=== PATIENT | male | born 1990 | race Caucasian/White ===

== ENCOUNTER 2023-10-25 15:17 | Inpatient (IN) | payer OTHER, SELFPAY ==
[2023-10-25] VITALS (15 sets, daily range): BP systolic 111–160; BP diastolic 62–101; PULSE 90–116; RESP 17–30; TEMP 36.1–36.4; O2SAT 98–100; BMI 27.9; BMI 30.5
--- NOTE | 2023-10-25 15:33 | NURSING ---
NO OLD EKGS
--- NOTE | 2023-10-25 15:40 | EKG12_ITS ---
Test Reason : Blood Pressure : / mmHG Vent. Rate : 102 BPM Atrial Rate : 102 BPM P-R Int : 140 ms QRS Dur : 104 ms QT Int : 400 ms P-R-T Axes : 058 045 011 degrees QTc Int : 521 ms Sinus tachycardia Prolonged QT Abnormal ECG Confirmed by Petey Singleton ([id number]), assistant production editor FÁTIMA FITZGERALD ([id number]) on 10/27/2023 8:18:48 AM Referred By: Confirmed By:Petey Singleton
--- NOTE | 2023-10-25 15:41 | EDS_ITS ---
HPI History of Present Illness Chief Complaint: Chest Pain Informant: patient and parent Narrative Narrative: 33-year-old male presenting to the emergency room with chief complaint of chest pain. Patient states for about 1 week he is felt weak. He notes increased urination and thirst. He states he feels short of breath. Mother states that she noticed that he was breathing very heavy on Thursday evening when she returned home. Patient denies any diarrhea or constipation. 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 He denies any cough. Denies weight gain weight loss. He states his biggest complaint is that he feels globally weak. Chest pain he describes as burning and just to the right of midline. It is made worse with eating and drinking. Patient denies any significant familial medical history including diabetes. He states he currently takes no medications or herbal supplements. PFSH PFSH Medical History no medical history no medical history Home Medications NK 10/25/23 [History Last Taken Unknown] Allergy/AdvReac Type Severity Reaction Status Date / Time No Known Allergies Allergy Verified 10/25/23 15:18 Surgical History no surgical history Social History (Updated 10/25/23 @ 15:[address] Song Mitchell, DO) current occupational status: employed current occupation: Fabricator x 9 years current gender identity: male Smoking Status: Never smoker ROS ROS ED Constitutional Constitutional ED: Reports other Details: Generalized fatigue ; Denies chills, fever(s) or weight loss Eyes Eyes: Denies change in vision or diplopia ENT ENT ED: Denies ear pain, rhinorrhea or sore throat Cardiovascular Cardiovascular: Reports chest pain; Denies orthopnea, palpitations or racing heartbeat Respiratory/Chest Respiratory/Chest: Reports dyspnea; Denies cough or orthopnea Gastrointestinal Gastrointestinal: Denies abdominal pain, diarrhea, nausea or vomiting Genitourinary Genitourinary ED: Reports urinary frequency; Denies dysuria or hematuria Musculoskeletal Musculoskeletal: Denies arthralgias or myalgias Integumentary Denies abscess or rash Neurologic Neurologic: Denies headache(s) or weakness Psychiatric Psychiatric: Denies anxiety, depression, suicidal ideation or suicidal thoughts Endocrine Endocrinology: Reports polydipsia; Denies polyphagia or polyuria Allergic/Immunologic Allergic/Immunologic ED: Denies mouth swelling, tongue swelling or urticaria EXAM Physical Exam Narrative Exam Narrative: Patient appears globally fatigued Const Vital Signs: 10/25/23 15:18 03/10/24 15:54 10/25/23 16:03 Temperature 97.2 F L 97 F L Temperature Source Temporal Axillary Pulse Rate 103 H 102 H Respiratory Rate 24 H 27 H Respiratory Effort Short of Breath Labored Accessory Muscle Use Nasal Flaring Pursed Lip Blood Pressure 150/92 H 145/85 H Blood Pressure Mean 111 105 Pulse Ox 100 100 Oxygen Delivery Method Room Air Room Air Positive well nourished and well developed General Appearance ED: well developed HEENT Reports normocephalic, head/scalp atraumatic and dry mucous membranes Mouth ED: Yes dry mucous membranes Mouth: dry mucous membranes Eyes PERRL and EOMs intact bilaterally Neck no lymphadenopathy, supple and no JVD Resp clear to auscultation bilaterally Resp Narrative: Patient appears dyspneic/tachypneic Cardio regular rate, regular rhythm and no murmurs Rate: tachycardic GI normal to inspection, nondistended, normoactive bowel sounds and non-tender Palpation: soft Back/Spine no CVA tenderness and normal ROM Extremity General Extremety ED: Negative for edema or tenderness General Extremity: Negative for edema Neuro oriented x3 and CN's II-XII intact bilaterally Sensorium / Orientation: alert Motor Exam: strength 5/5 throughout Psych mental status grossly normal Mood & Affect: Negative for depressed or tearful Skin no wounds Skin Narrative: Patient appears to have slight mottling of the lower extremities MDM MDM MDM Narrative Medical decision making narrative: Accu-Chek is 450. EKG demonstrates a sinus tachycardia at a ventricular rate of 102. Patient's pH is 7.07 with a CO2 of 7.5 pO2 121.8 and a bicarb of 2.2. IV was established and patient received IV fluids. He also received morphine and Zofran for pain. Plan at that interpretation of the chest x-ray is no acute process. White count is elevated 17.1 with a hemoglobin 16.2 and a platelet count of 405. Normal coags. Sodium at 124 potassium 3.8 CO2 at 7 anion gap of 29 BUN of 17 creatinine 1.55. Blood sugar 609. lactic acid normal 1.5 moderate acetone in the blood. Liver panel within normal limits. Urinalysis is concentrated with no overt infection. Positive ketones. Patient received IV fluids and was started on an insulin drip. Patient was reassessed and is still mentating. I reviewed the ED workup with the patient and his family. Clinically believe the patient is in diabetic ketoacidosis plan will be admission into the ICU. Urine collection is still pending. History & Record Review Discussion w/independent historian: Patient and Family Lab Data Attestation: I reviewed the patient's lab results. Labs: Laboratory Results - last 24 hr 10/25/23 10/25/23 10/25/23 15:36 15:45 15:46 WBC 17.1 H RBC 5.31 Hgb 16.2 Hct 45.6 MCV 85.9 MCH 30.5 MCHC 35.5 RDW Std Deviation 38.9 RDW Coeff of Christal 12.6 Plt Count 405 MPV 11.0 Immature Gran % (Auto) 1.200 H Neut % (Auto) 82.0 H Lymph % (Auto) 7.1 L [place] % (Auto) 9.0 Eos % (Auto) 0.1 Baso % (Auto) 0.6 Absolute Neuts (auto) 14.0 H Absolute Lymphs (auto) 1.22 Nucleated RBC % 0 Differential Comment SCANNED Diff Path Review May foll PT 13.1 INR 1.0 APTT 29.0 Sodium 124 L Potassium 3.8 Chloride 88 L Carbon Dioxide 7.0 L* Anion Gap 29 H BUN 17 Creatinine 1.55 H Estim Creat Clear Calc 65.13 Est GFR (MDRD) Af Amer 67 Est GFR (MDRD) Non-Af 56 L BUN/Creatinine Ratio 11.0 Glucose 609 H* Lactic Acid 1.5 Calcium 8.7 Phosphorus 4.4 Magnesium 2.2 Total Bilirubin 0.90 Direct Bilirubin 0.15 AST 18 ALT 36 Alkaline Phosphatase 156 H Troponin I High Sens 4 Total Protein 8.8 H Albumin 4.2 Globulin 4.6 H Lipase 30 Urine Color Urine Clarity Urine pH Ur Specific [place] Urine Protein Urine Glucose (UA) Urine Ketones Urine Occult Blood Urine Nitrite Urine Bilirubin Urine Urobilinogen Ur Leukocyte Esterase Urine RBC Urine WBC Ur Squamous Epith Cells Amorphous Sediment Urine Bacteria Urine Mucus Acetone Level MODERATE H POC Glucose 450 H 10/25/23 16:11 WBC RBC Hgb Hct MCV MCH MCHC RDW Std Deviation RDW Coeff of Christal Plt Count MPV Immature Gran % (Auto) Neut % (Auto) Lymph % (Auto) [place] % (Auto) Eos % (Auto) Baso % (Auto) Absolute Neuts (auto) Absolute Lymphs (auto) Nucleated RBC % Differential Comment Diff Path Review PT INR APTT Sodium Potassium Chloride Carbon Dioxide Anion Gap BUN Creatinine Estim Creat Clear Calc Est GFR (MDRD) Af Amer Est GFR (MDRD) Non-Af BUN/Creatinine Ratio Glucose Lactic Acid Calcium Phosphorus Magnesium Total Bilirubin Direct Bilirubin AST ALT Alkaline Phosphatase Troponin I High Sens Total Protein Albumin Globulin Lipase Urine Color Yellow Urine Clarity Sl. Cloudy Urine pH 5.0 Ur Specific [place] 1.025 Urine Protein 100 H Urine Glucose (UA) 1000 H Urine Ketones 150 A* Urine Occult Blood 250 H Urine Nitrite Negative Urine Bilirubin Negative Urine Urobilinogen Normal Ur Leukocyte Esterase Negative Urine RBC 10-25 SEEN Urine WBC 0-5 SEEN Ur Squamous Epith Cells 0-5 SEEN Amorphous Sediment 1+ URATE Urine Bacteria 0 SEEN Urine Mucus 0 SEEN Acetone Level POC Glucose ABG Data ABG results: ABG 10/25/23 15:56 Specimen Type ART Sample Site R Radial pH 7.07 L* Bicarbonate Actual 2.2 L Total CO2 < 5 Base Excess -28 L O2 Saturation 97 O2 % 21.0 ABG pCO2 7.5 L* ABG pO2 122 H Jonnathan Test Positive O2 Delivery Device Not entered Vent Mode Not entered Crit Call To/Read Back Yes Blood Gas Notified Whom [facility] Blood Gas Notified Time 15:58:07 Radiography Diagnostic Testing: Clinical Impression(s) from Imaging Studies Chest X-Ray 10/25/23 16:14 IMPRESSION: Normal x-ray examination of the chest. Electronically Signed: Juan Francisco Lawson MD at 16:47 EDT , EKG Initial EKG: Attestation: I personally reviewed and interpreted this EKG as follows: Comments: Sinus tachycardia at a ventricular rate of 102 bpm. No definitive features of ACS noted. Critical Care Time Critical Care Time: Yes Critical care time (excluding procedures): 30-74 minutes (35 min), Discussing w/Patient &/or Family/Fine Arts Chair, Discussing w/Consultants, Arranging Admission or Transfer and Performing Direct Patient Care at Bedside Discharge Plan Dx/Rx/DC Orders Clinical Impression: Diabetic ketoacidosis, Chest pain Disposition Disposition: [facility]
[2023-10-25] MEDS: 0.9% Normal Saline (1000mL) 1,000 ML 1000 ML IV ×2 (15:49→15:59)
[2023-10-25 15:55] LABS: Bedside Glucose 450 mg/dL (74-106)
[2023-10-25] MEDS: Morphine 4 MG/ML Syringe IV (15:57)
[2023-10-25] MEDS: Ondansetron 4 MG/2 ML Vial IV (15:57)
[2023-10-25 16:00] LABS: Allen Test Positive; Base Excess -28 mmol/L (-2 to +2); Bicarbonate 2.2 mmol/L (22-26); Blood Gas Specimen Type ART; Mode Not entered; O2 Delivery Device Not entered; PO2 122 mmHG (75-100); SITE R Radial; SO2 97 % (95-99); Time Given 15:58:07; Total Carbon Dioxide < 5 mmol/L; pCO2 7.5 mmHg (35-45); pH 7.07 (7.35-7.45)
[2023-10-25 16:09] LABS: Absolute Lymphocyte Count 1.22 X10^3/uL (0.83-4.51); Basophil% 0.6 % (0-1); Eosinophil# 0.01 X10^3/uL; Eosinophils% 0.1 % (0-5); Hematocrit 45.6 % (40-54); Hemoglobin 16.2 g/dL (13.0-16.5); Lymphocyte # 1.22 X10^3/ul (0.83-4.51); Lymphocyte % 7.1 % (19-41); Mean Corp Hgb Conc 35.5 g/dL (32-36); Mean Corpuscular Hgb 30.5 pg (27.0-32.0); Mean Corpuscular Volume 85.9 fL (80-94); Monocyte# 1.54 X10^3/uL; NRBC Flagged by Analyzer 0 % (0-5); Neutrophil # 14.02 X10^3/uL (2.7-7.7); POSITIVE DIFFERENTIAL YES; Platelet Count 405 K/mm3 (150-450); RBC Distribution Width CV 12.6 % (11.6-14.6); RBC Distribution Width SD 38.9 fl (35.1-43.9); Red Blood Count 5.31 M/mm3 (4.6-6.2); White Blood Count 17.1 K/mm3 (4.4-11.0)
--- NOTE | 2023-10-25 16:14 | RAD_ITS ---
STUDY: X-RAY CHEST REASON FOR EXAM: Male, 33 years old. chest pain dyspnea TECHNIQUE: Single AP portable view of the chest. COMPARISON: None. FINDINGS: The lungs are clear and expanded. There is no demonstrated pleural abnormality. Normal size heart. Normal mediastinum and ana rosa. Normal visualized pulmonary arteries. Normal visualized aortic arch and descending thoracic aorta. Normal visualized thoracic spine. Normal visualized ribs, clavicles, and shoulders. There is no demonstrated abnormality of the visualized soft tissue structures of the upper abdomen. RAD/Chest 1 View (Portable) IMPRESSION: Normal x-ray examination of the chest. Electronically Signed: Juan Francisco Lawson MD at 16:47 EDT ,
[2023-10-25 16:16] LABS: Bacteria 0 SEEN /hpf (None Seen); Mucous, Urine 0 SEEN /hpf (<or=2+)
[2023-10-25 16:17] LABS: Differential Indicated SCAN CRITERIA MET
[2023-10-25 16:20] LABS: Color, Urine Yellow (Yellow); Glucose, Dipstick 1000 mg/dl (Normal); Leukocyte Esterase-Dipstick Negative /ul (Negative); Nitrite-Dipstick Negative (Negative); Occult Blood-Urine 250 /ul (Negative); Protein-Dipstick 100 mg/dl (Negative); Specific Gravity, Urine 1.025 (1.002-1.030); Urine Bilirubin Dipstick Negative (Negative); Urine Clarity Sl. Cloudy (Clear); Urine Urobilinogen Normal (Normal)
[2023-10-25 16:23] LABS: Prothrombin Time (Protime)PT. 13.1 SECONDS (11.7-14.9)
[2023-10-25 16:29] LABS: Ketone-Dipstick 150 mg/dl (Negative)
[2023-10-25 16:30] LABS: Red Blood Cells-Urine 10-25 SEEN /hpf (0-5); Squamous Epithelial Cells - UA 0-5 SEEN /hpf (0-5); White Blood Cells 0-5 SEEN /hpf (0-5)
[2023-10-25 16:31] LABS: Amorphous Sediment 1+ URATE
[2023-10-25 16:37] LABS: AST(SGOT) 18 U/L (15-37); Alanine Aminotransfer ALT/SGPT 36 U/L (16-61); Albumin, Serum 4.2 g/dL (3.2-5.0); Alkaline Phosphatase 156 U/L (45-117); Anion Gap 29 (5-15); BUN 17 mg/dL (7-18); Bilirubin, Direct 0.15 mg/dL (0.00-0.30); Calcium,Total 8.7 mg/dL (8.5-10.1); Chloride 88 mmol/L (98-107); Creatinine, Serum 1.55 mg/dL (0.70-1.30); EST Glomerular Filtration Rate 56 mL/min (>60); Est Glom Filt Rate - Afr Amer 67 mL/min (>60); Estimated Creatinine Clearance 65.13 ml/min; Globulin 4.6 g/dL (2.2-4.2); Lipase 30 U/L (13-75); Magnesium 2.2 mg/dL (1.6-2.6); Phosphorus 4.4 mg/dL (2.5-4.9); Potassium 3.8 mmol/L (3.5-5.1); Protein, Total 8.8 g/dL (6.4-8.2); Sodium Level 124 mmol/L (136-145); Troponin-I HS 4 pg/mL (3.0-78.0)
[2023-10-25 16:44] LABS: Differential Comment SCANNED
[2023-10-25 16:46] LABS: Lactic Acid 1.5 mmol/L (0.4-1.9)
--- NOTE | 2023-10-25 17:00 | HP.PCM.HOS_ITS ---
HPI - General General Date of Admission: 10/25/23 Date of Service: 10/25/23 Chief Complaint: Chest pain HPI Narrative TAYLOR ZULETA, is a 33 M with no prior past medical who presents to the ED with concerns regarding chest pain and shortness of breath for the past week. There is associated polyuria and nocturia for the last week. He endorses 10-12 episodes of urination every night. In the ED his blood pressure was 160/99, heart rate 103, respiratory rate 28 WBC of 17.1 and blood gas of pH 7.07 with bicarb 2.2 sodium 124, chloride 88 creatinine 1.55 and a glucose of 609 mg/DL and lactic acid of 1.5. His alkaline phosphatase was 156 with normal AST ALT. His urine ketones are strongly positive, urine glucose was thousand, protein is 100 and occult blood is positive, nitrites and leuk esterase negative WBC is normal. Per the mother there is no family history of diabetes and he has never been tested in the past. [facility] Medical History no medical history Home Medications NK 10/25/23 [History Last Taken Unknown] Allergy/AdvReac Type Severity Reaction Status Date / Time No Known Allergies Allergy Verified 10/25/23 15:18 Surgical History no surgical history Social History (Updated 10/25/23 @ 15:[address] 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: male Smoking Status: Never smoker ROS Review of Systems ROS Unobtainable: Denies due to encephalopathy, due to endotracheal tube, due to mental condition, due to mental status or other Constitutional Constitutional: Reports anorexia and change in weight; Denies chills, fatigue, fever(s), malaise, night sweats, weakness or other Eyes Eyes: Denies blurry vision, change in eye color, change in vision, discharge from eye(s), double vision, erythema, eye pain, loss of vision or other ENT HEENT: Denies abnormal hearing, dysphagia, ear pain, epistaxis, headache(s), hearing loss, nasal congestion, nasal discharge, post nasal drip, sinus pressure, sore throat or other Cardiovascular Cardiovascular: Denies chest pain, claudication, dyspnea on exertion, edema, lightheadedness, orthopnea, palpitations, paroxysmal nocturnal dyspnea, rapid heart rate, syncope or other Respiratory/Chest Respiratory/Chest: Denies cough, dyspnea, excessive phlegm production, hemoptysis, productive cough, shortness of breath at rest, shortness of breath with exertion, wheezing or other Gastrointestinal Gastrointestinal: Denies abdominal pain, coffee ground emesis, constipation, diarrhea, dyspepsia, hematemesis, hematochezia, loose stools, melena, nausea, vomiting or other Genitourinary Genitourinary: Reports nocturia, urinary frequency, urinary hesitancy and urinary urgency Musculoskeletal Musculoskeletal: Denies arthralgias, back pain, joint pain, joint stiffness, joint swelling, myalgias, neck pain or other Neurologic Neurologic: Denies abnormal gait, abnormal speech, confusion, disequilibrium, dizziness, focal weakness, headache(s), numbness, paresthesias, seizure-like activity, seizures, syncope, tingling, tremor(s) or other Psychiatric Psychiatric: Denies anxiety, depression, homicidal ideation, suicidal ideation or other Endocrine Endocrinology: Reports change in body appearance, polydipsia and polyuria Hematologic/Lymphatic Hematologic/Lymphatic: Denies anemia, easy bleeding, easy bruising, lymphadenopathy or other Allergic/Immunologic Allergic/Immunologic: Denies rhinitis, hives, eczemia, asthma or other Vital Signs Vital Signs Vital Signs: 10/25/23 15:18 10/25/23 15:54 10/25/23 16:03 Temperature 97.2 F L 97 F L Temperature Source Temporal Axillary Pulse Rate 103 H 102 H Respiratory Rate 24 H 27 H Respiratory Effort Short of Breath Labored Accessory Muscle Use Nasal Flaring Pursed Lip Blood Pressure 150/92 H 145/85 H Blood Pressure Mean 111 105 Pulse Ox 100 100 Oxygen Delivery Method Room Air Room Air Weight Weight: 167 lb 8.821 oz Body Mass Index (BMI) 27.9 Physical Exam Const alert and oriented x3 HEENT normocephalic Eyes PERRL Neck no lymphadenopathy Resp Resp Narrative: Increased respiratory effort with retractions, normal breath sounds Cardio Cardio Narrative: Tachycardia, no murmurs GI Auscultation: hyperactive bowel sounds Extremity normal to inspection Skin Skin Narrative: Dry skin, bluish discoloration of extremities Neuro oriented x3 and CN's II-XII intact bilaterally Sensorium / Orientation: awake, alert and oriented to person Results Medical Records Data Attestation: I reviewed the patient's medical records Lab / Micro Data Attestation: I reviewed the patient's lab results. 10/25/23 15:45 10/25/23 15:45 Labs: Laboratory Results - last 24 hr 10/25/23 15:36: POC Glucose 450 H 10/25/23 15:45: WBC 17.1 H, RBC 5.31, Hgb 16.2, Hct 45.6, MCV 85.9, MCH 30.5, MCHC 35.5, RDW Std Deviation 38.9, RDW Coeff of Christal 12.6, Plt Count 405, MPV 11.0, Immature Gran % (Auto) 1.200 H, Neut % (Auto) 82.0 H, Lymph % (Auto) 7.1 L , [place] % (Auto) 9.0, Eos % (Auto) 0.1, Baso % (Auto) 0.6, Absolute Neuts (auto) 14.0 H, Absolute Lymphs (auto) 1.22, Nucleated RBC % 0, Differential Comment SCANNED, Diff Path Review December, PT 13.1, INR 1.0, APTT 29.0, Sodium 124 L, Potassium 3.8, Chloride 88 L, Carbon Dioxide 7.0 L*, Anion Gap 29 H, BUN 17, Creatinine 1.55 H, Estim Creat Clear Calc 65.13, Est GFR (MDRD) Af Amer 67, Est GFR (MDRD) Non-Af 56 L, BUN/Creatinine Ratio 11.0, Calcium 8.7, Phosphorus 4.4, Magnesium 2.2, Total Bilirubin 0.90, Direct Bilirubin 0.15, AST 18, ALT 36, Alkaline Phosphatase 156 H, Troponin I High Sens 4, Total Protein 8.8 H, Albumin 4.2, Globulin 4.6 H, Lipase 30, Acetone Level MODERATE H 10/25/23 15:46: Lactic Acid 1.5 10/25/23 16:11: Urine Color Yellow, Urine Clarity Sl. Cloudy, Urine pH 5.0, Ur Specific [place] 1.025, Urine Protein 100 H, Urine Glucose (UA) 1000 H, Urine Ketones 150 A*, Urine Occult Blood 250 H, Urine Nitrite Negative, Urine Bilirubin Negative, Urine Urobilinogen Normal, Ur Leukocyte Esterase Negative, Urine RBC 10-25 SEEN, Urine WBC 0-5 SEEN, Ur Squamous Epith Cells 0-5 SEEN, Amorphous Sediment 1+ URATE, Urine Bacteria 0 SEEN, Urine Mucus 0 SEEN ABG Data ABG results: ABG 10/25/23 15:56 Specimen Type ART Sample Site R Radial pH 7.07 L* Bicarbonate Actual 2.2 L Total CO2 < 5 Base Excess -28 L O2 Saturation 97 O2 % 21.0 ABG pCO2 7.5 L* ABG pO2 122 H Jonnathan Test Positive O2 Delivery Device Not entered Vent Mode Not entered Crit Call To/Read Back Yes Blood Gas Notified Whom xavier Blood Gas Notified Time 15:58:07 Attestation: I personally reviewed and interpreted this ABG as follows: Interpretation: High anion gap metabolic acidosis Imaging Radiology Impression Chest X-Ray 10/25/23 16:14 IMPRESSION: Normal x-ray examination of the chest. Electronically Signed: Juan Francisco Lawson MD at 16:47 EDT , Assessment & Plan Assessment/Plan (1) Diabetic ketoacidosis: PLAN: Plan 33-year-old male with no past medical history presents to the ED with concerns regarding chest pain and clinical features of dehydration. His laboratory investigations are concerning for diabetic ketoacidosis with high anion gap metabolic acidosis. The likely reason for his laboratory derangements are related to his uncontrolled blood sugars. We will transfer him to the ICU for further management of his DKA. 1. Diabetic ketoacidosis: -Insulin lispro infusion -Every 4 potassium, magnesium, phosphate tests -Normal saline 150 ml per hour -Replete electrolytes based on the tests. Potassium was 3.8 -No need for bicarbonate as pH was greater than 6.9 -Will engage nutrition therapy and diabetic education after his DKA has improved 2. Hypertension: -Continue to monitor for now, not on any antibiotics from before -We will start him on RHONA inhibitor's after the DKA improves the time of discharge 3. JAN: -likely related to prerenal renal injury secondary to dehydration -Continue to monitor 4. Leukocytosis: -Will not start on antibiotics as suspicion for infection is very low 5. DVT prophylaxis: -Encourage mobilization -Will withhold initiation of prophylactic anticoagulation for now Charges/Coding Visit Charges Inpatient E&M: 50287 Init Hosp L2
[2023-10-25 17:01] LABS: Glucose 609 mg/dL (74-106)
--- NOTE | 2023-10-25 17:06 | NURSING ---
ICU PATEL NEW ONSET DKA
[2023-10-25] MEDS: 0.9% Normal Saline (1000mL) 1,000 ML 999 ML IV ×2 (17:16→18:46)
[2023-10-25] MEDS: Insulin Lispro 100 UNIT in 0.9% Normal Saline (100mL Bag) 99 ML 7.59999999999999964 UNIT CONT INF (17:16)
[2023-10-25 17:35] LABS: Bedside Glucose 464 mg/dL (74-106)
[2023-10-25 17:41] LABS: Magnesium 2.2 mg/dL (1.6-2.6)
[2023-10-25] MEDS: 0.9% Normal Saline (1000mL) 1,000 ML 150 ML IV (18:10)
[2023-10-25 18:24] LABS: Bedside Glucose 498 mg/dL (74-106)
[2023-10-25 19:15] LABS: Bedside Glucose 394 mg/dL (74-106)
[2023-10-25 19:27] LABS: Anion Gap 24 (5-15); BUN 17 mg/dL (7-18); BUN/Creat Ratio 13.4 RATIO (10-20); Calcium,Total 8.4 mg/dL (8.5-10.1); Chloride 99 mmol/L (98-107); Creatinine, Serum 1.27 mg/dL (0.70-1.30); EST Glomerular Filtration Rate 70 mL/min (>60); Est Glom Filt Rate - Afr Amer 85 mL/min (>60); Estimated Creatinine Clearance 82.94 ml/min; Glucose 470 mg/dL (74-106); Potassium 3.4 mmol/L (3.5-5.1); Sodium Level 130 mmol/L (136-145)
[2023-10-25] MEDS: 0.9% Normal Saline (1000mL) 1,000 ML 500 ML IV (19:38)
[2023-10-25] MEDS: Sodium Bicarbonate 8.4% 50 ML Syringe 50 MEQ IV (20:54)
[2023-10-25] MEDS: Potassium Chloride 10mEq/100mL 10 MEQ/100 ML IV.SOLN. 100 MEQ IV BOLUS ×3 (20:59→23:01)
[2023-10-25] MEDS: KCL 20MEQ in 0.45%NS 20 MEQ/1,000 ML IV.SOLN. 150 MEQ IV (21:34)
[2023-10-25 22:49] LABS: Anion Gap 22 (5-15); BUN 15 mg/dL (7-18); BUN/Creat Ratio 12.9 RATIO (10-20); Calcium,Total 7.9 mg/dL (8.5-10.1); Chloride 105 mmol/L (98-107); Creatinine, Serum 1.16 mg/dL (0.70-1.30); EST Glomerular Filtration Rate 78 mL/min (>60); Est Glom Filt Rate - Afr Amer 94 mL/min (>60); Glucose 339 mg/dL (74-106); Magnesium 1.8 mg/dL (1.6-2.6); Phosphorus 2.4 mg/dL (2.5-4.9); Potassium 3.4 mmol/L (3.5-5.1); Sodium Level 135 mmol/L (136-145)
[2023-10-25] MEDS: 0.9% Saline Lock 10 ML Syringe IV (23:00)
[2023-10-25 23:26] LABS: Bedside Glucose 284 mg/dL (74-106)
[2023-10-25 23:26] LABS: Bedside Glucose 338 mg/dL (74-106)
[2023-10-25 23:26] LABS: Bedside Glucose 394 mg/dL (74-106)
[2023-10-25 23:27] LABS: Bedside Glucose 301 mg/dL (74-106)
[2023-10-26] VITALS (24 sets, daily range): BP systolic 93–136; BP diastolic 56–83; PULSE 87–128; RESP 12–23; TEMP 36.3–36.8; O2SAT 97–100; BMI 30.4
[2023-10-26] MEDS: 0.9% Saline Lock 10 ML Syringe IV (00:02)
[2023-10-26] MEDS: Potassium Chloride 10mEq/100mL 10 MEQ/100 ML IV.SOLN. 100 MEQ IV BOLUS (00:02)
[2023-10-26 00:21] LABS: Bedside Glucose 335 mg/dL (74-106)
[2023-10-26 01:16] LABS: Bedside Glucose 295 mg/dL (74-106)
[2023-10-26 02:56] LABS: Anion Gap 17 (5-15); BUN 15 mg/dL (7-18); BUN/Creat Ratio 12.4 RATIO (10-20); Calcium,Total 8.1 mg/dL (8.5-10.1); Chloride 110 mmol/L (98-107); Creatinine, Serum 1.21 mg/dL (0.70-1.30); EST Glomerular Filtration Rate 74 mL/min (>60); Est Glom Filt Rate - Afr Amer 89 mL/min (>60); Estimated Creatinine Clearance 87.05 ml/min; Glucose 323 mg/dL (74-106); Potassium 3.7 mmol/L (3.5-5.1); Sodium Level 135 mmol/L (136-145)
[2023-10-26] MEDS: Sodium Bicarbonate 8.4% 50 ML Syringe 50 MEQ IV (04:06)
[2023-10-26] MEDS: KCL 20MEQ in 0.45%NS 20 MEQ/1,000 ML IV.SOLN. 150 MEQ IV (04:06)
[2023-10-26 04:27] LABS: Bedside Glucose 263 mg/dL (74-106)
[2023-10-26 04:27] LABS: Bedside Glucose 269 mg/dL (74-106)
[2023-10-26 04:27] LABS: Bedside Glucose 279 mg/dL (74-106)
[2023-10-26 05:21] LABS: Bedside Glucose 284 mg/dL (74-106)
[2023-10-26 06:19] LABS: Bedside Glucose 264 mg/dL (74-106)
[2023-10-26 06:59] LABS: Anion Gap 17 (5-15); BUN 14 mg/dL (7-18); BUN/Creat Ratio 13.2 RATIO (10-20); Calcium,Total 8.4 mg/dL (8.5-10.1); Chloride 110 mmol/L (98-107); Creatinine, Serum 1.06 mg/dL (0.70-1.30); EST Glomerular Filtration Rate 86 mL/min (>60); Est Glom Filt Rate - Afr Amer 104 mL/min (>60); Glucose 315 mg/dL (74-106); Potassium 3.4 mmol/L (3.5-5.1); Sodium Level 137 mmol/L (136-145)
[2023-10-26 08:24] LABS: Bedside Glucose 298 mg/dL (74-106)
[2023-10-26] MEDS: 0.9% Normal Saline (1000mL) 1,000 ML 150 ML IV ×3 (09:02→22:42)
[2023-10-26] MEDS: Potassium Chloride Oral Tablet 20 MEQ 40 MEQ PO ×2 (09:03)
--- NOTE | 2023-10-26 10:23 | CASEMGMT ---
KARLA SALAMANCA Assessment Face to Face with patient for initial transition planning/care coordination assessment. KARLA SALAMANCA introduced self and role at [facility], pt voices understanding. Pt is A&Ox4 and is resting comfortably in bed and is calm. Pt father at bedside. Care providers, pharmacy, and demographics verified. Admitting dx: SYDNEY COOPER Strata: 1 PCP: Jasper Montanez Specialists: Pt states that he see a Chiropractor for back pain. Denies seeing an Artist [employer] or other specialized MD Preferred Pharmacy: [facility] in [place] Insurance: [employer] Prescription Benefit: Pt states he is unsure of this and also that he does not taking any Rx LNOK: Cedric Haley (F) Living Arrangements: Pt lives with his mom and dad in a 2 story home with a BM with handrails throughout. Pt states there are 8 steps to enter the home with a handrails. Pt denies issues using the steps. ADLs/IADLs: Ind Transportation: [employer] or the pt will hire a stunt driver. DME: Denies all DME uses currently. Pt states that he does not check his BS currently and that he does not have a BGM. Pt questioned if he would like an Rx for this and the pt did not seem to be interested in this. Pt educated at this time regarding the importance of checking his BS at home. Pt then agrees to wanting a Rx for a working BGM with supplies. Will follow up with Dr. Deal for order. HHC/SNF: Denies history or needs. Pt?s goal: Home Plan: Pt is independent at home. Pt does not have therapy ordered. Plan is to get the pt BS better controlled and provide education regarding DM. Will follow up with Dr. Deal regarding Rx for pt BGM with supplies. Riccardo Canchola RN, CM
[2023-10-26] MEDS: KCL 20MEQ in D5.45NS 20 MEQ/1,000 ML IV.SOLN. 150 MEQ IV (10:27)
[2023-10-26 10:33] LABS: Anion Gap 12 (5-15); BUN 13 mg/dL (7-18); Calcium,Total 8.5 mg/dL (8.5-10.1); Chloride 112 mmol/L (98-107); Creatinine, Serum 1.08 mg/dL (0.70-1.30); EST Glomerular Filtration Rate 84 mL/min (>60); Est Glom Filt Rate - Afr Amer 102 mL/min (>60); Estimated Creatinine Clearance 97.36 ml/min; Glucose 266 mg/dL (74-106); Potassium 3.5 mmol/L (3.5-5.1); Sodium Level 136 mmol/L (136-145)
[2023-10-26] MEDS: Insulin Lispro 100 UNIT in 0.9% Normal Saline (100mL Bag) 99 ML 7.79999999999999982 UNIT CONT INF (11:33)
[2023-10-26 11:50] LABS: Bedside Glucose 255 mg/dL (74-106)
[2023-10-26 11:51] LABS: Bedside Glucose 252 mg/dL (74-106)
[2023-10-26 11:52] LABS: Bedside Glucose 256 mg/dL (74-106)
[2023-10-26 11:53] LABS: Bedside Glucose 199 mg/dL (74-106)
--- NOTE | 2023-10-26 12:30 | PN_ITS ---
Subjective Subjective Patient seen and examined. He had no active complaints. He was lying in bed. He looked weak but was able to communicate. He denied any frequency of urination, abdominal pain, nausea vomiting or any other symptoms. Review of systems otherwise negative. Bicarb was 10 this morning and anion gap was elevated at 17. He is on insulin drip. Objective Data Objective Data Vital Signs: Vital Signs Temp Pulse Resp BP Pulse Ox O2 Del Method 97.7 F L 94 18 106/75 97 Room Air 10/26/23 12:00 10/26/23 12:00 10/26/23 12:00 10/26/23 12:00 10/26/23 12:00 10/26/23 12:00 Oxygen Delivery Method Room Air Weight: 182 lb 15.739 oz Body Mass Index (BMI) 30.4 Intake & Output: Intake and Output for Last 24 Hours 10/24/23 10/25/23 10/26/23 22:59 23:59 23:59 Intake Total 2191.04 / 2191.04 Balance 2191.04 / 2191.04 Lab / Micro Data 10/25/23 15:45 10/26/23 10:00 Labs: Laboratory Results - last 24 hr 10/25/23 15:36: POC Glucose 450 H 10/25/23 15:45: WBC 17.1 H, RBC 5.31, Hgb 16.2, Hct 45.6, MCV 85.9, MCH 30.5, MCHC 35.5, RDW Std Deviation 38.9, RDW Coeff of Christal 12.6, Plt Count 405, MPV 11.0, Immature Gran % (Auto) 1.200 H, Neut % (Auto) 82.0 H, Lymph % (Auto) 7.1 L , [place] % (Auto) 9.0, Eos % (Auto) 0.1, Baso % (Auto) 0.6, Absolute Neuts (auto) 14.0 H, Absolute Lymphs (auto) 1.22, Nucleated RBC % 0, Differential Comment SCANNED, Diff Path Review December, PT 13.1, INR 1.0, APTT 29.0, Sodium 124 L, Potassium 3.8, Chloride 88 L, Carbon Dioxide 7.0 L*, Anion Gap 29 H, BUN 17, Creatinine 1.55 H, Estim Creat Clear Calc 65.13, Est GFR (MDRD) Af Amer 67, Est GFR (MDRD) Non-Af 56 L, BUN/Creatinine Ratio 11.0, Glucose 609 H*, Calcium 8.7, Phosphorus 4.4, Magnesium 2.2 10/25/23 15:45: Magnesium 2.2, Total Bilirubin 0.90, Direct Bilirubin 0.15, AST 18, ALT 36, Alkaline Phosphatase 156 H, Troponin I High Sens 4, Total Protein 8.8 H, Albumin 4.2, Globulin 4.6 H, Lipase 30, Acetone Level MODERATE H 10/25/23 15:46: Lactic Acid 1.5 10/25/23 16:11: Urine Color Yellow, Urine Clarity Sl. Cloudy, Urine pH 5.0, Ur Specific Sunflower 1.025, Urine Protein 100 H, Urine Glucose (UA) 1000 H, Urine Ketones 150 A*, Urine Occult Blood 250 H, Urine Nitrite Negative, Urine Bilirubin Negative, Urine Urobilinogen Normal, Ur Leukocyte Esterase Negative, Urine RBC 10-25 SEEN, Urine WBC 0-5 SEEN, Ur Squamous Epith Cells 0-5 SEEN, Amorphous Sediment 1+ URATE, Urine Bacteria 0 SEEN, Urine Mucus 0 SEEN 10/25/23 17:13: POC Glucose 464 H* 10/25/23 18:03: POC Glucose 498 H* 10/25/23 18:50: Sodium 130 L, Potassium 3.4 L, Chloride 99, Carbon Dioxide 7.0 L*, Anion Gap 24 H, BUN 17, Creatinine 1.27, Estim Creat Clear Calc 82.94, Est GFR (MDRD) Af Amer 85, Est GFR (MDRD) Non-Af 70, BUN/Creatinine Ratio 13.4, Glucose 470 H*, Calcium 8.4 L 10/25/23 18:54: POC Glucose 394 H 10/25/23 19:58: POC Glucose 394 H 10/25/23 21:02: POC Glucose 338 H 10/25/23 22:02: POC Glucose 284 H 10/25/23 22:26: Sodium 135 L, Potassium 3.4 L, Chloride 105, Carbon Dioxide 8.0 L*, Anion Gap 22 H, BUN 15, Creatinine 1.16, Estim Creat Clear Calc 90.80, Est GFR (MDRD) Af Amer 94, Est GFR (MDRD) Non-Af 78, BUN/Creatinine Ratio 12.9, Glucose 339 H, Calcium 7.9 L, Phosphorus 2.4 L, Magnesium 1.8 10/25/23 23:00: POC Glucose 301 H 10/26/23 00:02: POC Glucose 335 H 10/26/23 00:59: POC Glucose 295 H 10/26/23 01:59: POC Glucose 279 H 10/26/23 02:32: Sodium 135 L, Potassium 3.7, Chloride 110 H, Carbon Dioxide 8.0 L*, Anion Gap 17 H, BUN 15, Creatinine 1.21, Estim Creat Clear Calc 87.05, Est GFR (MDRD) Af Amer 89, Est GFR (MDRD) Non-Af 74, BUN/Creatinine Ratio 12.4, Glucose 323 H, Calcium 8.1 L 10/26/23 03:01: POC Glucose 269 H 10/26/23 04:03: POC Glucose 263 H 10/26/23 05:01: POC Glucose 284 H 10/26/23 06:00: POC Glucose 264 H 10/26/23 06:35: Sodium 137, Potassium 3.4 L, Chloride 110 H, Carbon Dioxide 10.0 L, Anion Gap 17 H, BUN 14, Creatinine 1.06, Estim Creat Clear Calc 99.20, Est GFR (MDRD) Af Amer 104, Est GFR (MDRD) Non-Af 86, BUN/Creatinine Ratio 13.2, Glucose 315 H, Calcium 8.4 L 10/26/23 06:59: POC Glucose 298 H 10/26/23 08:03: POC Glucose 255 H 10/26/23 09:01: POC Glucose 256 H 10/26/23 10:00: Sodium 136, Potassium 3.5, Chloride 112 H, Carbon Dioxide 12.0 L , Anion Gap 12, BUN 13, Creatinine 1.08, Estim Creat Clear Calc 97.36, Est GFR (MDRD) Af Amer 102, Est GFR (MDRD) Non-Af 84, BUN/Creatinine Ratio 12.0, Glucose 266 H, Calcium 8.5 10/26/23 10:01: POC Glucose 199 H 10/26/23 11:28: POC Glucose 252 H ABG Data ABG results: ABG 10/25/23 15:56 Specimen Type ART Sample Site R Radial pH 7.07 L* Bicarbonate Actual 2.2 L Total CO2 < 5 Base Excess -28 L O2 Saturation 97 O2 % 21.0 ABG pCO2 7.5 L* ABG pO2 122 H Jonnathan Test Positive O2 Delivery Device Not entered Vent Mode Not entered Crit Call To/Read Back Yes Blood Gas Notified Whom xavier Blood Gas Notified Time 15:58:07 Radiography Diagnostic Testing: Radiology Impression Chest X-Ray 10/25/23 16:14 IMPRESSION: Normal x-ray examination of the chest. Electronically Signed: Juan Francisco Lawson MD at 16:47 EDT , Physical Exam Const alert, oriented x3 and no apparent distress General Appearance: cooperative and well developed HEENT normocephalic, head/scalp atraumatic, moist oral mucous membranes and oropharynx normal Eyes PERRL and EOMs intact bilaterally Neck no lymphadenopathy, supple and no JVD Lymph Lymphatic: no lymphadenopathy noted and no lymphedema noted Resp normal respiratory effort, normal air movement and clear to auscultation bilaterally Cardio regular rate, regular rhythm, S1 normal heart sound and S2 normal heart sound GI normal to inspection, nondistended, normoactive bowel sounds, soft to palpation and non-tender Extremity normal capillary refill, no clubbing, cyanosis or edema and no calf tenderness General Extremity: no tenderness to palpation of joints or extremities Skin General Skin Exam: no breakdown Neuro CN's II-XII intact bilaterally, no focal motor deficits, no sensory deficits noted and deep tendon reflexes 2+ bilaterally Motor Exam: strength 5/5 throughout Psych thought process normal and cooperative Mood & Affect: flat affect Assessment & Plan Assessment/Plan (1) Diabetic ketoacidosis: PLAN: Plan #DKA in a newly diagnosed diabetic * currently on insulin drip. Hydrate aggresively with iVF * keep NPO * monitor BMP q4hrly until anion gap closes * check A1C * switch to SQ insulin once gap closes x 2. * * #Anion gap metabolic acidosis due to DKA * anion gap was 12 this morning, with bicarb of 10. * continue hydration with IVF and continue insulin drip * should improve once DKA resolves * #Hypokalemia: K is 3.3. Will replace and trend. DVT prophylaxis: SCDs. Charges/Coding Visit Charges Inpatient E&M: 51601 Subs Hosp L3
[2023-10-26 13:39] LABS: Bedside Glucose 264 mg/dL (74-106)
[2023-10-26 14:35] LABS: Bedside Glucose 251 mg/dL (74-106)
[2023-10-26 14:37] LABS: Anion Gap 13 (5-15); BUN 12 mg/dL (7-18); BUN/Creat Ratio 11.5 RATIO (10-20); Calcium,Total 8.5 mg/dL (8.5-10.1); Chloride 113 mmol/L (98-107); Creatinine, Serum 1.04 mg/dL (0.70-1.30); EST Glomerular Filtration Rate 88 mL/min (>60); Est Glom Filt Rate - Afr Amer 106 mL/min (>60); Estimated Creatinine Clearance 101.11 ml/min; Glucose 291 mg/dL (74-106); Potassium 3.4 mmol/L (3.5-5.1); Sodium Level 139 mmol/L (136-145)
[2023-10-26 15:32] LABS: Bedside Glucose 268 mg/dL (74-106)
[2023-10-26 16:10] LABS: Bedside Glucose 252 mg/dL (74-106)
[2023-10-26 16:16] LABS: Bedside Glucose 223 mg/dL (74-106)
[2023-10-26] MEDS: Insulin Glargine-YFGN 100 UNIT/ML Pen 10 UNIT SC (17:50)
[2023-10-26] MEDS: metFORMIN HCl 500 MG Tablet PO (17:50)
[2023-10-26 20:35] LABS: Bedside Glucose 341 mg/dL (74-106)
[2023-10-26] MEDS: Insulin Glargine-YFGN 100 UNIT/ML Pen 12 UNIT SC (20:49)
[2023-10-26] MEDS: Insulin Lispro 100 UNIT/ML INSULN.PEN SC (20:50)
[2023-10-27] VITALS (16 sets, daily range): BP systolic 105–133; BP diastolic 64–89; PULSE 63–124; RESP 14–23; TEMP 36.1–37; O2SAT 96–100; BMI 30.5
[2023-10-27 00:57] LABS: Bedside Glucose 291 mg/dL (74-106)
[2023-10-27 03:30] LABS: Absolute Lymphocyte Count 1.25 X10^3/uL (0.83-4.51); Basophil# 0.03 X10^3/uL; Basophil% 0.5 % (0-1); Eosinophil# 0.13 X10^3/uL; Eosinophils% 2.1 % (0-5); Hematocrit 31.3 % (40-54); Hemoglobin 11.4 g/dL (13.0-16.5); Lymphocyte # 1.25 X10^3/ul (0.83-4.51); Mean Corp Hgb Conc 36.4 g/dL (32-36); Mean Corpuscular Hgb 30.9 pg (27.0-32.0); Mean Corpuscular Volume 84.8 fL (80-94); Mean Platelet Vol. 10.2 fl (6.2-12.0); Monocyte# 0.79 X10^3/uL; Monocyte% 12.6 % (0-10); NRBC Flagged by Analyzer 0 % (0-5); Neutrophil # 3.98 X10^3/uL (2.7-7.7); Neutrophil % 63.7 % (47-70); Platelet Count 217 K/mm3 (150-450); RBC Distribution Width CV 13.3 % (11.6-14.6); RBC Distribution Width SD 41.2 fl (35.1-43.9); Red Blood Count 3.69 M/mm3 (4.6-6.2); White Blood Count 6.3 K/mm3 (4.4-11.0)
[2023-10-27 03:47] LABS: Anion Gap 13 (5-15); BUN 11 mg/dL (7-18); BUN/Creat Ratio 11.3 RATIO (10-20); Calcium,Total 8.4 mg/dL (8.5-10.1); Chloride 108 mmol/L (98-107); Creatinine, Serum 0.97 mg/dL (0.70-1.30); EST Glomerular Filtration Rate 95 mL/min (>60); Est Glom Filt Rate - Afr Amer 115 mL/min (>60); Estimated Creatinine Clearance 108.59 ml/min; Glucose 314 mg/dL (74-106); Potassium 2.9 mmol/L (3.5-5.1); Sodium Level 135 mmol/L (136-145)
[2023-10-27] MEDS: Potassium Chloride 10mEq/100mL 10 MEQ/100 ML IV.SOLN. 100 MEQ IV BOLUS ×4 (04:15→07:53)
[2023-10-27 05:33] LABS: Magnesium 1.9 mg/dL (1.6-2.6); Phosphorus 1.8 mg/dL (2.5-4.9)
[2023-10-27] MEDS: Insulin Lispro 100 UNIT/ML INSULN.PEN SC ×4 (07:54→21:20)
[2023-10-27] MEDS: metFORMIN HCl 500 MG Tablet PO ×2 (07:55→16:07)
[2023-10-27] MEDS: Insulin Glargine-YFGN 100 UNIT/ML Pen 10 UNIT SC ×2 (07:56→21:20)
[2023-10-27] MEDS: Na Biphos/Potassium Phosphate PACKET 1 PACKET PO ×4 (07:57→21:20)
[2023-10-27 08:01] LABS: Pathologist Review Reviewed
[2023-10-27 08:23] LABS: Bedside Glucose 259 mg/dL (74-106)
--- NOTE | 2023-10-27 09:34 | PN_ITS ---
Subjective Subjective Patient seen and examined. His sister was by his bedside. He had no active complaints. He had an uneventful night. Review of systems otherwise negative. His potassium is low and is being replaced. He is on Lantus and sliding scale. Objective Data Objective Data Vital Signs: Vital Signs Temp Pulse Resp BP Pulse Ox O2 Del Method 97.8 F 102 H 18 112/77 98 Room Air 10/27/23 08:50 10/27/23 09:00 10/27/23 09:00 10/27/23 09:00 10/27/23 09:00 10/27/23 09:00 Oxygen Delivery Method Room Air Weight: 183 lb 10.321 oz Body Mass Index (BMI) 30.5 Intake & Output: Intake and Output for Last 24 Hours 10/25/23 10/26/23 10/27/23 23:59 23:59 23:59 Intake Total 5739.04 / 5739.04 1232.5 / 1232.5 Balance 5739.04 / 5739.04 1232.5 / 1232.5 Lab / Micro Data 10/27/23 03:20 10/27/23 03:20 Labs: Laboratory Results - last 24 hr 10/25/23 15:45: Diff Path Review Reviewed 10/26/23 08:03: POC Glucose 255 H 10/26/23 09:01: POC Glucose 256 H 10/26/23 10:00: Sodium 136, Potassium 3.5, Chloride 112 H, Carbon Dioxide 12.0 L , Anion Gap 12, BUN 13, Creatinine 1.08, Estim Creat Clear Calc 97.36, Est GFR (MDRD) Af Amer 102, Est GFR (MDRD) Non-Af 84, BUN/Creatinine Ratio 12.0, Glucose 266 H, Calcium 8.5 10/26/23 10:01: POC Glucose 199 H 10/26/23 11:28: POC Glucose 252 H 10/26/23 11:57: POC Glucose 252 H 10/26/23 13:19: POC Glucose 264 H 10/26/23 14:10: Sodium 139, Potassium 3.4 L, Chloride 113 H, Carbon Dioxide 13.0 L, Anion Gap 13, BUN 12, Creatinine 1.04, Estim Creat Clear Calc 101.11, Est GFR (MDRD) Af Amer 106, Est GFR (MDRD) Non-Af 88, BUN/Creatinine Ratio 11.5, Glucose 291 H, Hemoglobin A1c 13.0 H, Calcium 8.5 10/26/23 14:14: POC Glucose 251 H 10/26/23 15:14: POC Glucose 268 H 10/26/23 15:57: POC Glucose 223 H 10/26/23 20:15: POC Glucose 341 H 10/27/23 00:40: POC Glucose 291 H 10/27/23 03:20: WBC 6.3, RBC 3.69 L, Hgb 11.4 L, Hct 31.3 L, MCV 84.8, MCH 30.9, MCHC 36.4 H, RDW Std Deviation 41.2, RDW Coeff of Christal 13.3, Plt Count 217, MPV 10.2, Immature Gran % (Auto) 1.100 H, Neut % (Auto) 63.7, Lymph % (Auto) 20.0, [place] % (Auto) 12.6 H, Eos % (Auto) 2.1, Baso % (Auto) 0.5, Absolute Neuts (auto) 4.0, Absolute Lymphs (auto) 1.25, Nucleated RBC % 0, Sodium 135 L, Potassium 2.9 L, Chloride 108 H, Carbon Dioxide 14.0 L, Anion Gap 13, BUN 11, Creatinine 0.97, Estim Creat Clear Calc 108.59, Est GFR (MDRD) Af Amer 115, Est GFR (MDRD) Non-Af 95, BUN/Creatinine Ratio 11.3, Glucose 314 H, Calcium 8.4 L, Phosphorus 1.8 L, Magnesium 1.9 10/27/23 07:53: POC Glucose 259 H Physical Exam Const alert, oriented x3 and no apparent distress General Appearance: cooperative and well developed HEENT normocephalic, head/scalp atraumatic, moist oral mucous membranes and oropharynx normal Eyes PERRL and EOMs intact bilaterally Neck no lymphadenopathy, supple and no JVD Lymph Lymphatic: no lymphadenopathy noted and no lymphedema noted Resp normal respiratory effort, normal air movement and clear to auscultation bi laterally Resp Narrative: Increased respiratory effort with retractions, normal breath sounds Cardio regular rate, regular rhythm, S1 normal heart sound and S2 normal heart sound Cardio Narrative: Tachycardia, no murmurs GI normal to inspection, nondistended, normoactive bowel sounds, soft to palpation and non-tender Auscultation: hyperactive bowel sounds Extremity normal to inspection, normal capillary refill, no clubbing, cyanosis or edema and no calf tenderness General Extremity: no tenderness to palpation of joints or extremities Skin General Skin Exam: no breakdown Neuro oriented x3, CN's II-XII intact bilaterally, no focal motor deficits, no sensory deficits noted and deep tendon reflexes 2+ bilaterally Sensorium / Orientation: awake, alert and oriented to person Motor Exam: strength 5/5 throughout Psych thought process normal and cooperative Mood & Affect: flat affect Assessment & Plan Assessment/Plan (1) Diabetic ketoacidosis: PLAN: Plan #DKA in a newly diagnosed diabetic * now on sq lantus 10 units bid and high dose sliding scale * A1C is 13. * will consult ict educator to school guidance counselor about diet and compliance with insulin * will need to establish with ammonia refrigeration technician on outpatient basis * #Anion gap metabolic acidosis due to DKA * bicarb is up to 14 today, with anion gap of 11. * improving. Will continue to monitor. * #Hypokalemia: K is 2.9 today. Will replace aggressively and trend.. Will replace and trend. DVT prophylaxis: SCDs. Charges/Coding Visit Charges Inpatient E&M: 19759 Subs Hosp L2
[2023-10-27] MEDS: 0.9% Normal Saline (1000mL) 1,000 ML 150 ML IV ×2 (11:26→16:07)
[2023-10-27 16:37] LABS: Bedside Glucose 313 mg/dL (74-106)
[2023-10-27 20:49] LABS: Anion Gap 14 (5-15); BUN 13 mg/dL (7-18); Calcium,Total 8.8 mg/dL (8.5-10.1); Chloride 103 mmol/L (98-107); Creatinine, Serum 0.93 mg/dL (0.70-1.30); EST Glomerular Filtration Rate 101 mL/min (>60); Est Glom Filt Rate - Afr Amer 122 mL/min (>60); Estimated Creatinine Clearance 113.26 ml/min; Glucose 409 mg/dL (74-106); Potassium 3.5 mmol/L (3.5-5.1); Sodium Level 132 mmol/L (136-145)
[2023-10-27 22:18] LABS: Bedside Glucose 356 mg/dL (74-106)
[2023-10-28] MEDS: 0.9% Normal Saline (1000mL) 1,000 ML 150 ML IV (00:59)
[2023-10-28 02:30] VITALS: BP 102/68; PULSE 74; RESP 16; TEMP 36.6; O2SAT 97
[2023-10-28 05:44] VITALS: BMI 30.5
[2023-10-28] MEDS: Insulin Lispro 100 UNIT/ML INSULN.PEN SC ×2 (06:20→11:41)
[2023-10-28 06:57] LABS: Bedside Glucose 274 mg/dL (74-106)
[2023-10-28 07:51] LABS: Absolute Lymphocyte Count 1.03 X10^3/uL (0.83-4.51); Absolute Neutrophil Count 2.7 X10^3/uL (2.0-7.7); Basophil# 0.03 X10^3/uL; Basophil% 0.7 % (0-1); Eosinophils% 2.3 % (0-5); Hematocrit 32.2 % (40-54); Hemoglobin 11.7 g/dL (13.0-16.5); Lymphocyte # 1.03 X10^3/ul (0.83-4.51); Lymphocyte % 24.1 % (19-41); Mean Corp Hgb Conc 36.3 g/dL (32-36); Mean Corpuscular Hgb 31.1 pg (27.0-32.0); Mean Corpuscular Volume 85.6 fL (80-94); Mean Platelet Vol. 9.9 fl (6.2-12.0); Monocyte# 0.41 X10^3/uL; Monocyte% 9.6 % (0-10); NRBC Flagged by Analyzer 0 % (0-5); Neutrophil # 2.67 X10^3/uL (2.7-7.7); Neutrophil % 62.6 % (47-70); Platelet Count 207 K/mm3 (150-450); RBC Distribution Width CV 13.2 % (11.6-14.6); RBC Distribution Width SD 40.7 fl (35.1-43.9); Red Blood Count 3.76 M/mm3 (4.6-6.2); White Blood Count 4.3 K/mm3 (4.4-11.0)
[2023-10-28 08:26] LABS: Anion Gap 11 (5-15); BUN 10 mg/dL (7-18); BUN/Creat Ratio 12.8 RATIO (10-20); Calcium,Total 8.8 mg/dL (8.5-10.1); Chloride 107 mmol/L (98-107); Creatinine, Serum 0.78 mg/dL (0.70-1.30); EST Glomerular Filtration Rate 123 mL/min (>60); Est Glom Filt Rate - Afr Amer 149 mL/min (>60); Estimated Creatinine Clearance 134.96 ml/min; Glucose 301 mg/dL (74-106); Phosphorus 2.7 mg/dL (2.5-4.9); Potassium 3.2 mmol/L (3.5-5.1); Sodium Level 138 mmol/L (136-145)
[2023-10-28 09:16] VITALS: BP 109/72; PULSE 77; RESP 18; TEMP 36.6; O2SAT 100
[2023-10-28] MEDS: metFORMIN HCl 500 MG Tablet PO (09:21)
[2023-10-28] MEDS: Potassium Chloride Oral Tablet 20 MEQ 40 MEQ PO (09:21)
[2023-10-28] MEDS: Na Biphos/Potassium Phosphate PACKET 1 PACKET PO (09:22)
[2023-10-28] MEDS: Insulin Glargine-YFGN 100 UNIT/ML Pen 10 UNIT SC (09:22)
--- NOTE | 2023-10-28 09:33 | CASEMGMT ---
KARLA CM into pt room, pt provided rx for BGM. Pt is aware to test twice daily and to obtain from pharmacy of choice. Pt states he has given insulin before and denies concerns with this. Pt has transportation home. He denies any homegoing needs.
--- NOTE | 2023-10-28 11:30 | DCINST_ITS ---
Discharge Instructions Diet Discharge Diet: Low fat / Low cholesterol Activity Discharge Activity: Return to Normal Activity Weight Bearing Status: Weight bearing as tolerated Dressing / Incision Call your doctor if you observe: Fever of 101 or Higher, Shortness of breath, Dizziness, Swelling in the ankles, Chest pain and Increased palpitations (irregular heartbeat) Follow Up Care Test Results: Test results from this visit will be discussed in further detail at your follow- up appointment, if applicable. Discharge Plan Admission Admit Date/Time: 10/25/23 17:03 Primary Reason for Your Visit: DKA in a newly diagnosed diabetic Attending Provider: Rabia Deal Primary Care Provider: Jasper Montanez Consulting Providers: Jocelyn Bradley Instructions Patient Instructions: Ketoacidosis Ch Discharge Orders/Prescriptions Prescriptions: New metformin 500 mg Tablet 500 mg PO BIDCM Qty: 60 2RF insulin glargine [Lantus Solostar U-100 Insulin] 100 unit/mL (3 mL) insulin pen 10 unit subcut BID Qty: 15 2RF (DME) pen needle, diabetic [BD Ultra-Fine Ivy Pen Needle] 32 gauge x 5/32 needle See Rx Instructions .Route Qty: 1200 0RF Rx Instructions: As directed No Action NK Referrals / Follow Up: Jasper Montanez DO [Primary Care Provider] - Within 2 Weeks Disposition Disposition (needs filled in before D/C Order can be placed): Home, Self Care
--- NOTE | 2023-10-28 11:31 | PCM.DC.SUM ---
Providers Date of Admission: 10/25/23 Date of Discharge: 10/28/23 Primary Care Physician: Dr. Jasper Montanez DO Reason For Visit: DKA Diagnosis Discharge Diagnosis (1) Diabetic ketoacidosis: Status: Acute Code(s): E11.10 - Type 2 diabetes mellitus with ketoacidosis without coma Plan #DKA in a newly diagnosed diabetic now on sq lantus 10 units bid and high dose sliding scale A1C is 13. will consult certified adapted physical educator to counselor dormitory about diet and compliance with insulin will need to establish with flatwork finisher hand on outpatient basis #Anion gap metabolic acidosis due to DKA bicarb is up to 14 today, with anion gap of 11. improving. Will continue to monitor. #Hypokalemia: K is 2.9 today. Will replace aggressively and trend.. Will replace and trend. DVT prophylaxis: SCDs. Medications at Discharge Home Medications insulin glargine 100 unit/mL (3 mL) subcutaneous pen (Lantus Solostar U-100 Insulin) 10 unit (0.1 mL) subcut BID #15 mL 10/28/23 metformin 500 mg tablet 500 mg PO BIDCM #60 tabs 10/28/23 pen needle, diabetic 32 gauge x 5/32 (BD Ultra-Fine Ivy Pen Needle) #1,200 ea 10/28/23 Hospital Course Operations None Procedures None Summary of Care Provided Minutes Spent on Discharge: 52 Hospital Course: Patient is a 33-year-old male with no significant past medical history was admitted through the ED on 10/25/2023 with a complaint of chest pain and shortness of breath which have been going on for about a week. He had associated polyuria and nocturia. Labs done showed pH of 7.07 with bicarb of 2.2 and anion gap of 24. Creatinine was 1.55 and blood glucose was 609 with lactic acid of 1.5. Anion gap was markedly elevated. Urinalysis showed evidence of ketones. He had no family history of diabetes and patient never been diagnosed with diabetes in the past. He was admitted and managed for DKA in the setting of newly diagnosed diabetes. He was placed on insulin drip and hydrated with IV fluids. He was kept n.p.o. and admitted to the ICU. With aggressive fluid hydration and insulin drip, anion gap gradually closed. Hospital course was complicated by hypokalemia which resolved with aggressive replacement. Anion gap closed and blood sugars trended down. He was placed on subcu Lantus 10 units twice daily. He was also placed on metformin 500 mg twice daily. His A1c was 13. Patient was discharged home on 10/28/2023 and was counseled to follow-up with his PCP within 1 week and to establish care with flatwork finisher hand. Patient seen and examined prior to discharge. He had no active complaints and had an uneventful night. He was tolerating his diet. Review of systems otherwise negative. Labs and vitals reviewed. Home medication reviewed and reconciled. Physical Exam Const alert, oriented x3 and no apparent distress General Appearance: cooperative and well developed HEENT normocephalic, head/scalp atraumatic, hearing grossly normal bilaterally, moist oral mucous membranes and oropharynx normal Mouth: oral and palatal mucosa normal Eyes PERRL and EOMs intact bilaterally Neck no lymphadenopathy, supple and no JVD Lymph Lymphatic: no lymphadenopathy noted and no lymphedema noted Resp normal respiratory effort, normal air movement and clear to auscultation bilaterally Cardio regular rate, regular rhythm, S1 normal heart sound and S2 normal heart sound GI normal to inspection, nondistended, normoactive bowel sounds, soft to palpation and non-tender Auscultation: hyperactive bowel sounds Extremity normal to inspection, full ROM, normal capillary refill, no clubbing, cyanosis or edema and no calf tenderness General Extremity: no tenderness to palpation of joints or extremities Skin no rashes or lesions noted Skin Narrative: General Skin Exam: no breakdown Neuro oriented x3, CN's II-XII intact bilaterally, moves all extremities, no focal motor deficits, no sensory deficits noted and deep tendon reflexes 2+ bilaterally Sensorium / Orientation: awake, alert and oriented to person Motor Exam: strength 5/5 throughout Psych thought process normal and cooperative Weight / BMI Weight Weight: 183 lb 6.793 oz Body Mass Index (BMI) 30.5 ABG / Lab / Microbiology Data 10/28/23 07:30 10/28/23 07:30 Laboratory: Laboratory Results - last 24 hr 10/27/23 16:06: POC Glucose 313 H 10/27/23 20:02: Sodium 132 L, Potassium 3.5, Chloride 103, Carbon Dioxide 15.0 L, Anion Gap 14, BUN 13, Creatinine 0.93, Estim Creat Clear Calc 113.26, Est GFR (MDRD) Af Amer 122, Est GFR (MDRD) Non-Af 101, BUN/Creatinine Ratio 14.0, Glucose 409 H, Calcium 8.8 10/27/23 21:19: POC Glucose 356 H 10/28/23 06:20: POC Glucose 274 H 10/28/23 07:30: WBC 4.3 L, RBC 3.76 L, Hgb 11.7 L, Hct 32.2 L, MCV 85.6, MCH 31.1, MCHC 36.3 H, RDW Std Deviation 40.7, RDW Coeff of Christal 13.2, Plt Count 207, MPV 9.9, Immature Gran % (Auto) 0.700, Neut % (Auto) 62.6, Lymph % (Auto) 24.1, [place] % (Auto) 9.6, Eos % (Auto) 2.3, Baso % (Auto) 0.7, Absolute Neuts (auto) 2.7, Absolute Lymphs (auto) 1.03, Nucleated RBC % 0, Sodium 138, Potassium 3.2 L, Chloride 107, Carbon Dioxide 20.0 L, Anion Gap 11, BUN 10, Creatinine 0.78, Estim Creat Clear Calc 134.96, Est GFR (MDRD) Af Amer 149, Est GFR (MDRD) Non-Af 123, BUN/Creatinine Ratio 12.8, Glucose 301 H, Calcium 8.8, Phosphorus 2.7, Magnesium 2.0 D/C Instructions Discharge Diet: Low fat / Low cholesterol Discharge Activity: Return to Normal Activity Weight Bearing Status: Weight bearing as tolerated Call your doctor if you observe: Fever of 101 or Higher, Shortness of breath, Dizziness, Swelling in the ankles, Chest pain and Increased palpitations (irregular heartbeat) Meaningful Use Info Meaningful Use Diagnoses (Choose all that apply): None applicable Discharge Plan Admission Admit Date/Time: 10/25/23 17:03 Primary Reason for Your Visit: DKA in a newly diagnosed diabetic Attending Provider: Rabia Deal Primary Care Provider: Jasper Montanez Consulting Providers: Jocelyn Bradley Instructions Patient Instructions: Ketoacidosis Ch Discharge Orders/Prescriptions Prescriptions: New metformin 500 mg Tablet 500 mg PO BIDCM Qty: 60 2RF insulin glargine [Lantus Solostar U-100 Insulin] 100 unit/mL (3 mL) insulin pen 10 unit subcut BID Qty: 15 2RF (DME) pen needle, diabetic [BD Ultra-Fine Ivy Pen Needle] 32 gauge x 5/32 needle See Rx Instructions .Route Qty: 1200 0RF Rx Instructions: As directed Referrals / Follow Up: Jasper Montanez DO [Primary Care Provider] - Within 2 Weeks Disposition Disposition (needs filled in before D/C Order can be placed): Home, Self Care Charges/Coding Visit Charges Inpatient E&M: 82914 Disch Hosp >30min
[2023-10-28 12:00] LABS: Bedside Glucose 295 mg/dL (74-106)
--- NOTE | 2023-10-28 12:25 | PHA.DC_ITS ---
Pharmacy [facility] has performed discharge medication reconciliation and counseling for this patient. 1. INSULIN GLARGINE 10UNITS SC BID 2. METFORMIN 500MG PO BIDCM The patient's discharge medication list was reviewed for discrepancies and discrepancies were resolved. The patient was counseled on the following discharge medications and changes in medications for homegoing were reviewed. The Reason for Use, instructions for use, and potential side effects were reviewed for all new medications. The patient's questions regarding all of their medications were answered. The patient was able to verbally demonstrate an understanding of their discharge medications. Medications at Discharge Home Medications insulin glargine 100 unit/mL (3 mL) subcutaneous pen (Lantus Solostar U-100 Insulin) 10 unit (0.1 mL) subcut BID #15 mL 10/28/23 metformin 500 mg tablet 500 mg PO BIDCM #60 tabs 10/28/23 pen needle, diabetic 32 gauge x 5/32 (BD Ultra-Fine Ivy Pen Needle) #1,200 ea 10/28/23
== END 2023-10-28 13:00 | disposition home or self-care (01) | DRG 638 ==
LOC: ED 16:32 → ICU 17:12 → MS3 10-27 18:10
PROVIDERS: Family Medicine; Admitting Provider Internal Medicine; Emergency Provider Emergency Medicine; PCP Family Medicine; Visit Provider Student in an Organized Health Care Education/Training Program
DX: E11.10 Type 2 diabetes mellitus with ketoacidosis without coma (principal); N17.9 Acute kidney failure, unspecified; Z79.4 Long term (current) use of insulin; I10 Essential (primary) hypertension; E87.6 Hypokalemia
CPT/HCPCS: 36415; 36600; 71045; 80048; 80076; 81001; 82009; 82803; 82962; 83036; 83605; 83690; 83735; 84100; 84484; 85025; 85610; 85730; 87040; 93005; 97802; 97803; 99285; J7030; A4216